=== PATIENT | male | born 1965 | race Caucasian/White ===

== ENCOUNTER 2022-06-27 15:04 | Outpatient (RCR) | payer BC, SELFPAY | END 2023-03-06 23:59 | disposition home or self-care (01) | PROVIDERS: PCP Family Medicine; Visit Provider Family Medicine | DX: M54.16 Radiculopathy, lumbar region (principal); M54.50 Low back pain, unspecified; Z51.89 Encounter for other specified aftercare | CPT/HCPCS: 97110; 97162 ==

== ENCOUNTER 2024-11-17 12:29 | Emergency (ER) | payer OTHER, SELFPAY ==
--- OUTSIDE RECORDS SUMMARY | 2024-11-17 12:31 | XMS_ITS | Clinical Summary ---
Author Organization [employer] [facility] Address [address] [place] [address] Care Team Providers Care Shearing Supervisor Name Role Phone Dennis Donovan MD Primary Care Provider Allergies No known active allergies Medications ibuprofen (ADVIL; MOTRIN) 200 mg tabletIndications: Screen for colon cancer,Polyp of colon, unspecified part of colon, unspecified type,Diverticulosi s of large intestine without hemorrhage Take 1 Tablet (200 mg) by mouth in the morning and 1 Tablet (200 mg) at noon and 1 Tablet (200 mg) in the evening and 1 Tablet (200 mg) before bedtime. 0 2 Active escitalopram oxalate (LEXAPRO) 20 mg tabletIndications: Current moderate episode of major depressive disorder without prior episode (HC) Take (20mg) by mouth AFTER taking 10mg for 1 week. 90 Tablet 3 4 Active methylPREDNISolone (Medrol, Nir,) 4 mg tabletIndications: Back pain without radiation Take by mouth as instructed per packaging. 21 Tablet 5 Active gabapentin (NEURONTIN) 300 mg capsuleIndications :Peripheral polyneuropathy Take 2 Capsules (600 mg) by mouth at bedtime. 180 Capsule 3 5 Active cyclobenzaprine (FLEXERIL) 10 mg tabletIndications: Back pain without radiation TAKE 1 TABLET(10 MG) BY MOUTH THREE TIMES DAILY NEEDED FOR MUSCLE SPASM 30 Tablet 1 5 Active Active Problems Problem Noted Date Diagnosed Date Hypertriglyceridemia 11/26/2022 Overweight 11/26/2022 Generalized anxiety disorder 12/28/2014 Cervical spinal stenosis 09/26/2009 Overview (09/26/2009): S/p anterior approach fusion Encounters Date Type Department Care Team Description 10/06/2024 Refill [facility] [address] [place] [address] Roxy Messer MD Refill Request (Cyclobenzaprine) 09/17/2024 2:00 PM CLINICAL DIETITIAN Office Visit [facility] [address] [place] [address] Hilario Calles [facility] Visit 09/17/2024 Travel 09/14/2024 7:50 AM CLINICAL DIETITIAN Office Visit [facility] [address] [place] [address] Roxy Messer MD Back Pain (X 3 days) 09/14/2024 Travel 09/12/2024 Nurse Triage [facility] [address] [place] [address] Dennis Donovan MD Concerns 09/03/2024 1:00 PM CLINICAL DIETITIAN Office Visit [facility] [address] [place] [address] Hilario Calles [facility] Visit 09/02/2024 Travel 09/01/2024 8:00 AM CLINICAL DIETITIAN Office Visit [facility] [address] [place] [address] Daysi Cagle MD Consult (Lipoma top of head) 09/01/2024 Travel 08/30/2024 1:00 PM CLINICAL DIETITIAN Office Visit [facility] [address] [place] [address] Hilario Calles [facility] Visit 08/30/2024 Travel 08/27/2024 8:50 AM CLINICAL DIETITIAN Office Visit [facility] [address] [place] [address] Iesha Raymundo PA Foot Problem (R foot was numb on Bria - now all toes on R foot feel weird and 2 toes on L foot feel same way ); Referral (For therapy) 08/26/2024 Travel from Last 3 Months Immunizations Immunization Administration Dates Next Due Influenza A (H1N1), Inactivated 07/31/2009 Influenza A (H1N1), Inactivated (Age >=3 Years) 07/18/2009 Influenza, IIV3 (Age >=3 years) 06/18/2009 Influenza, IIV4 07/31/2017 Tdap 11/19/2021,01/30/2012 Tuberculin (PPD) 01/06/2017 Zoster (Shingrix-RZV, recombinant) 11/26/2022, Family History Medical History Relation Name Comments Heart failure Father at 60's Cancer-colon No Family History Cancer-prostate No Family History Diabetes No Family History Relation Name Status Comments Father Social History Tobacco Use Types Packs/Day Years Used Date Smoking Tobacco: Never Smokeless Tobacco: Never Tobacco Cessation:Counseling Given: No Alcohol Use Standard Drinks/Week Comments Not Currently 0 (1 standard drink = 0.6 oz pur e alcohol) PHQ-2 Answer Date Recorded PHQ-2 TOTAL SCORE 2 02/05/2023 Social Connections Answer Date Recorded Do you often feel lonely or isolated from those around you? 0 12/05/2023 Financial Resource Strain Answer Date R ecorded Difficulty of Paying Living Expenses 2 12/05/2023 Difficulty of Paying Living Expenses 1 12/05/2023 Food Insecurity Answer Date Recorded Do you worry your food will run out before you are able to buy more? 1 12/05/2023 Transportation Needs Answer Date Record ed Does lack of transportation keep you from medica l appointments? 1 12/05/2023 Does lack of transportation keep you from work, meetings or getting things that you need? 1 12/05/2023 Housing Stability Answer Date Recorded What is your housing situation today? 1 12/05/2023 Utilities Answer Date Recorded Do you have trouble paying f or utilities (for example, heat, electricity, water, phone)? 2 12/05/2023 Sex and Gender Information Value Date Recorded Sex Assigned at Not on file Legal Sex Male 7:41 AM CLINICAL DIETITIAN Gender Identity Not on file Sexual Orientation Not on file Obstetrics History Last Filed Vital Signs Vital Sign Reading Time Taken Comments Blood Pressure 122/79 09/14/2024 7:50 AM CLINICAL DIETITIAN Pulse 77 09/14/2024 7:50 AM CLINICAL DIETITIAN Temperature 36.4 C (97.6 F) 11/26/2022 3:23 PM CDT Respiratory Rate 18 06/13/2020 9:06 AM CDT Oxygen Saturation 97% 09/14/2024 7:50 AM CLINICAL DIETITIAN Inhaled Oxygen Concentration - - Weight 96.7 kg (213 lb 3.2 oz) 09/14/2024 7:50 A M CLINICAL DIETITIAN Height 177.8 cm (5' 10) 12/05/2023 8:46 AM CDT Body Mass Index 30.59 12/05/2023 8:46 AM CDT Plan of Treatment Upcoming Encounters Date Type Department Care Team (Late st Contact Info) Description 12/28/2024 8:00 AM CDT Office Visit [facility] [address] [place] [phone] Nikita Roberts PsyD, LP [address] [place] [address] Health Maintenance Due Date Last Done Comments Pneumococcal series for age 50+ (1 of 1 - PCV) 2015 Depression screening for age 12+ 02/06/2024 02/05/2023, 11/26/2022, 05/17/2021, Additional history exists COVID-19 vaccine series ( season) 2024 08/22/2021, 10/12/2020, 09/12/2020 BMI (ht and wt on same day) for age 18+ 12/04/2024 12/05/2023, 11/26/2022, 05/23/2021, Additional history exists Influenza Vaccine (Season Ended) 2025 07/31/20 17, 06/18/2009 Lipids for age 45-75 12/04/2028 12/05/2023, 11/26/2022, 11/19/2021 Tetanus booster 11/20/2031 11/19/2021, 01/30/2012 Colonoscopy through age 75 02/08/203202/07, 02/07/2022, 02/07/2022 Hepatitis C screening for ag e 18-79 Completed 11/19/2021 Tdap Completed 11/19/2021, 01/30/2012 HIV for age 15-65 Completed 11/26/2022 Zoster (shingles) series for age 50+ Completed 11/26/2022, 11/19/2021 Medical Devices Implanted Type Area Traffic Analysis Technician Device Identifier Shelf Expiration Date Model / Serial / Lot Plate 22.5mm Ant Cerv - [id number] Implanted:Qty: 1 on 09/26/[address] [facility] Spine Implants N/A: Cervical Vertebrae [employer] [id number] / / Screw 3.5x15 Zephir Self Tap - [id number] Implanted:Qty: 4 on 09/26/[address] [facility] Spine Implants N/A: Cervical Vertebrae [employer] [id number] / / [employer] Psr [id number] - [id number] Implanted:Qty: 1 on 09/26/[address] [facility] N/A: Cervical Vertebrae [employer]ANEK 03/18/2011 [id number] / / [id number] Procedures Procedure Name Priority Date/Time Associated Diagnosis Comments HEMOGLOBIN A1C Routine 08/27/2024 9:26 AM CLINICAL DIETITIAN Blood glucose elevated LIPID PANEL W REFLEX MEASURED LDL Routine 12/05/2023 9:13 AM CDT Hypertriglyceridemia LC HIV-1/O/2, 4TH GENERATION Routine 11/26/2022 4:25 PM CDT Screening for HIV (human immunodeficiency virus) COLONOSCOPY 02/07/2022 8:42 AM CDT ANTI HCV Routine 11/19/2021 2:08 PM CDT Need for hepatitis C screening test from Last 3 Months or Most Recently Relevant to Health Maintenance Results * HEMOGLOBIN A1C (08/27/2024 9:26 AM CLINICAL DIETITIAN) HEMOGLOBIN A1C 5.1 <5.7 % of total Hgb [facility] Comment: For the purpose of screening for the presence of diabetes: <5.7% Consistent with the absence of diabetes 5.7-6.4% Consistent with increased risk for diabetes (prediabetes) > or =6.5% Consistent with diabetes This assay result is consistent with a decreased risk of diabetes. Currently, no consensus exists regarding use of hemoglobin A1c for diagnosis of diabetes in children. According to [place] Diabetes Association (ADA) guidelines, hemoglobin A1c <7.0% represents optimal control in non- diabetic patients. Different metrics may apply to specific patient populations. Standards of Medical Care in Diabetes(ADA). Blood BLOOD SPECIMEN / Unknown 08/27/2024 9:26 AM CLINICAL DIETITIAN 08/27/2024 9:27 AM CLINICAL DIETITIAN Iesha BARTHOLOMEW CHEMISTRY Final R esult [employer] [facility] [address] [place] [address], [facility] [address] [place] [address] * (ABNORMAL) LIPID PANEL W REFLEX MEASURED LDL (12/05/2023 9:13 AM CDT) [facility] CHOLESTEROL,TOTAL 160 100 - 199 mg/dL 12/05/2023 6:[address] [facility] Comment: Cholesterol, Total Reference Ranges Desirable <200 mg/dL Borderline 200-239 mg/dL High >=240 mg/dL TRIGLYCERIDES 166(H) <150 mg/dL 12/05/2023 6:06 PM [facility] HDL CHOLESTEROL 32(L) >40 mg/dL 6:06 PM [facility] NON-HDL CHOLESTEROL 128 <145 mg/dl 12/05/2023 6:06 PM [facility] CHOL/HDL RATIO 5.00(H) <4.50 12/05/2023 6:06 PM [facility] LDL CHOLESTEROL 95 <=130 mg/dL 12/05/2023 6:06 PM [facility] VLDL CHOLESTEROL 33(H) <=30 mg/dL 12/05/2023 6:06 PM CDT [facility] PROVIDER ORDERED STATUS RANDOM 12/05/2023 6:06 PM CDT [facility] Blood BLOOD SPECIMEN / Unknown Venipuncture / Unknown 12/05/2023 9:13 AM CDT 12/05/2023 9:14 AM CDT us Dennis Donovan MD CHEMISTRY Final Result [facility] [address] [place] [address], [place] * LC HIV-1/O/2, 4TH GENERATION (11/26/2022 4:25 PM CDT) [facility] HIV Scr 4th Gen Non Reactive Non Reactive 11/29/2022 1:09 PM CDT [facility] Comment: HIV Negative HIV-1/HIV-2 antibodies and HIV-1 p24 antigen were NOT detected. There is no laboratory evidence of HIV infection. Blood BLOOD SPECIMEN / Unknown Venipuncture / Unknown 11/26/2022 4:25 PM CDT 11/26/2022 4:27 PM CDT Narrative [facility] - 11/29/2022 1:09 PM CDT Performed at: [address] [place] [id number] Hadoop Java Developer: José Jaramillo MD, Phone: [phone] us Dennis Donovan MD LABORATORY Final Result [facility] [address] [place] [address], [place] * COLONOSCOPY (02/07/2022 8:42 AM CDT) 02/07/2022 8:42 AM CDT Narrative Transcriptions Yao Ghosh MD - 02/07/2022 9:47 AM CDT Patient Name: Dennis Shi Procedure Date: 02/07/2022 Gender: Male Date of : 1965 Admit Type: Outpatient Procedure: Colonoscopy Proceduralist: Yao Ghosh MD , Elvia Fierro (Nurse) Indications/Pre-Op Diagnosis: Screening for colorectal malignant neoplasm, This is the patient's first colonoscopy Medications: Fentanyl 100 micrograms IV, Midazolam 2 mgIV, The level of sedation administered wasmoderate Procedure Description: The patient had risks, benefits and alternatives explained to andgave informed consent. The patient had a stable cardiopulmonary status and judged an adequate candidate for conscious sedation. The [id number] was passed through the anus and advanced tothe cecum, identified by appendiceal orifice and ileocecal valve. The colonoscopy was performed without difficulty. The patient toleratedthe procedure well. The quality of the bowel preparation was good. The ileocecal valve, appendiceal orifice, and rectum were photographed. Complications: No immediate complications. Estimated Blood Loss & Specimen: Estimated blood loss: none. Specimen collected - Yes and sent to Laboratory Findings: The perianal and digital rectal examinations were normal. The terminal ileum appeared normal. A 3 mm polyp was found in the sigmoid colon. The polyp was sessile.The polyp was removed with a cold snare. Resection and retrieval were complete. Scattered small and large-mouthed diverticula were found in theentire colon. A patchy area of mildly erythematous mucosa was found in theascending colon. Biopsies were taken with a cold forceps for histology. The exam was otherwise without abnormality. Impressions/Post-Op Diagnosis: - The examined portion of the ileum was normal. - One 3 mm polyp in the sigmoid colon, removed with a cold snare. Resected and retrieved. - Diverticulosis in the entire examined colon. - Erythematous mucosa in the ascending colon. Biopsied. - The examination was otherwise normal. Recommendation: - Patient has a contact number available for emergencies. The signsand symptoms of potential delayed complications were discussed with the patient. Return to normal activities tomorrow. Written discharge instructions were provided to the patient. - Resume previous diet. - Continue present medications. - Await pathology results. - Repeat colonoscopy is recommended. The colonoscopy date will be determined after pathology results from today's exam become available for review. Moderate Sedation: Moderate (conscious) sedation was administered by the endoscopy nurse and supervised by the endoscopist. The following parameters were monitored: oxygen saturation, heart rate, respiratory rate, blood pressure, adequacy of pulmonary ventilation and reponse to care. Please refer to the patient's medical record flowsheets and nursing notes for moderate sedation details. Total physician intraservice time was 18 minutes. Yao Ghosh MD 02/07/2022 9:47:11 AM This report has been signed electronically. Note Initiated On: 02/07/2022 8:42 AM Procedure Code(s): --- Professional --- 91793, Colonoscopy, flexible; with removalof tumor(s), polyp(s), or other lesion(s) bysnare technique 10874, 59, Colonoscopy, flexible; withbiopsy, single or multiple Diagnosis Code(s): --- Professional --- Z12.11, Encounter for screening formalignant neoplasm of colon D12.5, Benign neoplasm of sigmoid colon K63.89, Other specified diseases ofintestine K57.30, Diverticulosis of large intestine without perforation or abscess withoutbleeding CPT copyright 2020 [place] [employer]. All rights reserved. The codes documented in this report are preliminary and upon fancy sewer reviewmay be revised to meet current compliance requirements. Scope In: 9:21:37 AM Scope Withdrawal Time 0 hours 12 minutes 34 seconds Scope Out: 9:38:02 AM us Yao Ghosh MD PROCEDURE ORD Final Res ult * ANTI HCV (11/19/2021 2:08 PM CDT) HEPATITIS C ANTIBODY Non-React merced Non-React merced 11/19/2021 11:10 PM CDT [facility] Comment:Antibodies to HCV no t detected; does not exclude the possibility of exposure to HCV. Blood BLOOD SPECIMEN / Unknown Venipuncture / Unknown 11/19/2021 2:08 PM CDT 11/19/2021 2:11 PM CDT us Dennis Donovan MD SEND OUTS Final Result [facility] [address] [place] [address], [place] from Last 3 Months or Most Recently Relevant to Health Maintenance Insurance [place] Advance Directives * Full Code (Latest Code Status on File) Date Activated Date Inactivated Comments 09/26/2009 2:37 PM 09/27/2009 3:38 PM * Full Code Date Activated Date Inactivated Comments 09/26/2009 9:58 AM 09/26/2009 2:37 PM Care Teams Shearing Supervisor Relationship Specialty Start Date End Date Dennis Donovan MD [address] [place] [address] PCP - General Family Practice 08/26/17
[2024-11-17 13:07] VITALS: BP 149/79; PULSE 89; RESP 16; TEMP 37.2; O2SAT 96; BMI 30.2
--- NOTE | 2024-11-17 13:44 | ED.WOUNDLAC ---
HPI - Wound/Laceration General Chief Complaint: Laceration/Wound Stated Complaint: R middle finger lac Time Seen by Provider: 11/17/24 12:31 History of Present Illness HPI narrative: This 59-year-old male comes in with an injury to his right middle finger. He was at work cleaning a desk and as he reached under at there was something sharp that cut into the distal portion of his right middle finger. His tetanus status is up-to-date and was administered last time about 3 years ago. Related Data Allergies Allergy/AdvReac Type Severity Reaction Status Date / Time No Known Drug Allergies Allergy Verified 11/17/24 13:06 Review of Systems Status of ROS: Reports: 10 or more systems reviewed and unremarkable except as noted in History and below Narrative: Constitutional: No fevers, no weight gain or loss. Eyes: No discharge. No vision changes. HENT: No congestion, no sore throat, no ear pain. Cardiovascular: No chest pain, no palpitations. Respiratory: No shortness of breath, no wheezes, no cough. Gastrointestinal: No abdominal pain, no vomiting, no diarrhea. Genitourinary: No dysuria, no hematuria. Musculoskeletal: Normal range of motion. Skin: No rashes, no pruritis. Neurological: No dizziness, weakness, sensory change, speech change. Endo/Heme/Allergies: No bruising or bleeding. No polydipsia. Pysch: no suicidality, no anxiety, no insomnia. All other systems reviewed and are negative. Exam Narrative: Exam Narrative: Constitutional: Well-developed, well-nourished, no acute distress. HEENT: Normocephalic, atraumatic. Neck: Normal range of motion. Nontender. Supple. Heart: Intact distal pulses. Lungs: No chest discomfort. No wheezes, rhonchi, or rales. Abdomen: Nontender. Back: Normal range of motion. Extremities: Normal range of motion. 1.5 cm laceration on the distal portion of the right middle finger. Skin: Intact. No rash. Warm. No erythema or pallor. Neurologic: No altered sensation. No weakness. Alert and oriented. Psychiatric: No suicidality. No anxiety or depression. No insomnia. Nursing notes and vitals signs are reviewed. Const: Vital Signs, click to edit/add: Vital Signs - 24 hr 11/17/24 13:07 Temperature 99.0 F Pulse Rate [Pulse Oximeter] 89 Respiratory Rate 16 Blood Pressure [Ri ght Upper Arm] 149/79 H Pulse Oximetry 96 Oxygen Delivery Me thod Room Air Course Vital Signs Vital signs: Initial Vital Signs Temperature 99.0 F 11/17/24 13:07 Temperature Source Oral 11/17/24 13:07 Pulse Rate 89 11/17/24 13:07 Respiratory Rate 16 11/17/24 13:07 Blood Pressure 149/79 H 11/17/24 13:07 Blood Pressure Mean 102 11/17/24 13:07 Blood Pressure Position Sitting 11/17/24 13:07 Pulse Oximetry 96 11/17/24 13:07 Oxygen Delivery Method Room Air 11/17/24 13:07 Vital Signs Temperature 99.0 F 11/17/24 13:07 Pulse Rate 89 11/17/24 13:07 Respiratory Rate 16 11/17/24 13:07 Blood Pressure 149/79 H 11/17/24 13:07 Pulse Oximetry 96 11/17/24 13:07 Oxygen Delivery Method Room Air 11/17/24 13:07 Temperature 99.0 F 11/17/24 13:07 Pulse Rate 89 11/17/24 13:07 Respiratory Rate 16 11/17/24 13:07 Blood Pressure 149/79 H 11/17/24 13:07 Pulse Oximetry 96 11/17/24 13:07 Oxygen Delivery Method Room Air 11/17/24 13:07 MDM - Wound/Laceration MDM Narrative Medical decision making narrative: This patient comes in with an injury to his right middle finger. The wound was cleansed and I recommended Dermabond repair as the wound edges are already nicely approximated. Per Dermabond was applied with excellent results. Instructions regarding wound care were given. Discharge Plan Discharge Clinical Impression: Laceration Patient Disposition: Home, Self-Care Condition: Stable Additional Instructions: Keep wound clean and dry. Use [id number] medicines as needed and directed. Follow up with MD return if worsening. Follow Up/Referrals: Margot Christopher DO [Primary Care Provider] - Stand Alone Forms: Work/School Release
--- OUTSIDE RECORDS SUMMARY | 2024-11-17 14:01 | XMS_ITS | Clinical Summary ---
Author Organization [facility] Address [address] [place] [id number] Care Team Providers Care Gage Maker Name Role Phone Dennis Donovan MD Primary [...] Type Department Care Team Description 10/06/2024 Refill [facility] [address] [place] [address] Roxy Messer MD Refill Request (Cyclobenzaprine) 09/17/2024 2:00 PM [employer]ARE[employer] INSTRUCTOR Office Visit [facility] [address] [place] [address] Hilario Calles [facility] Visit 09/17/2024 Travel 09/14/2024 7:50 AM HEALTH CAREERS INSTRUCTOR Office Visit [facility] [address] [place] [address] Roxy Messer MD Back Pain (X 3 days) 09/14/2024 Travel 09/12/2024 Nurse Triage [facility] [address] [place] [address] Dennis Donovan MD Concerns 09/03/2024 1:00 PM HEALTH CAREERS INSTRUCTOR Office Visit [facility] [address] [place] [address] Hilario Calles [facility] Visit 09/02/2024 Travel 09/01/2024 8:00 AM HEALTH CAREERS INSTRUCTOR Office Visit [facility] [address] [place] [address] Daysi Cagle MD Consult (Lipoma top of head) 09/01/2024 Travel 08/30/2024 1:00 PM HEALTH CAREERS INSTRUCTOR Office Visit [facility] [address] [place] [address] Hilario Calles [facility] Visit 08/30/2024 Travel 08/27/2024 8:50 AM HEALTH CAREERS INSTRUCTOR Office Visit [facility] [address] [place] [address] Iesha Raymundo PA Foot Problem (R foot [...] on file Legal Sex Male 7:41 AM HEALTH CAREERS INSTRUCTOR Gender Identity Not on file Sexual Orientation Not on file Obstetrics History Last Filed Vital Signs Vital Sign Reading Time Taken Comments Blood Pressure 122/79 09/14/2024 7:50 AM HEALTH CAREERS INSTRUCTOR Pulse 77 09/14/2024 7:50 AM HEALTH CAREERS INSTRUCTOR Temperature 36.4 C (97.6 F) 11/26/2022 3:23 PM CDT Respiratory Rate 18 06/13/2020 9:06 AM CDT Oxygen Saturation 97% 09/14/2024 7:50 AM HEALTH CAREERS INSTRUCTOR Inhaled Oxygen Concentration - - Weight 96.7 kg (213 lb 3.2 oz) 09/14/2024 7:50 A M HE[employer] CAREERS INSTRUCTOR Height 177.8 cm (5' 10) 12/05/2023 8:46 AM CDT Body Mass Index 30.59 12/05/2023 8:46 AM CDT Plan of Treatment Upcoming Encounters Date Type Department Care Team (Late st Contact Info) Description 12/28/2024 8:00 AM CDT Office Visit [facility] [address] [place] [phone] Nikita Roberts PsyD, LP [address] [place] [address] Health Maintenance Due Date Last Done Comments [...] 11/26/2022, 11/19/2021 Medical Devices Implanted Type Area Riveting Machine Operator Tape Control Device Identifier Shelf Expiration Date Model / Serial / Lot Plate 22.5mm Ant Cerv - [id number] Implanted:Qty: 1 on 09/26/2009 at [facility] Spine Implants N/A: Cervical Vertebrae [employer] [id number] / / Screw 3.5x15 Zephir Self Tap - [id number] Implanted:Qty: 4 on 09/26/2009 at [facility] Spine Implants N/A: Cervical Vertebrae [employer] [id number] / / [employer] [id number] - [id number] Implanted:Qty: 1 on 09/26/2009 at [facility] N/A: Cervical Vertebrae [employer] 03/18/2011 [id number] / / [id number] Procedures Procedure Name Priority Date/Time Associated Diagnosis Comments HEMOGLOBIN A1C Routine 08/27/2024 9:26 AM HEALTH CAREERS INSTRUCTOR Blood glucose elevated LIPID PANEL W REFLEX [...] Results * HEMOGLOBIN A1C (08/27/2024 9:26 AM HEALTH CAREERS INSTRUCTOR) HEMOGLOBIN A1C 5.1 <5.7 % of total [...] diagnosis of diabetes in children. According to [place] [employer] (ADA) guidelines, hemoglobin A1c <7.0% represents optimal control in non- diabetic patients. Different metrics may apply to specific patient populations. Standards of Medical Care in Diabetes(ADA). Blood BLOOD SPECIMEN / Unknown 08/27/2024 9:26 AM HEALTH CAREERS INSTRUCTOR 08/27/2024 9:27 AM HEALTH CAREERS INSTRUCTOR Iesha BARTHOLOMEW CHEMISTRY Final R esult [employer] [facility] [address] [place] [address], [employer] [facility] [address] [place] [address] * (ABNORMAL) LIPID PANEL W REFLEX MEASURED LDL (12/05/2023 9:13 AM CDT) [facility] CHOLESTEROL,TOTAL 160 100 - 199 mg/dL 12/05/2023 6:[address] [facility] Comment: Cholesterol, Total Reference Ranges Desirable <200 mg/dL Borderline 200-239 mg/dL High >=240 mg/dL TRIGLYCERIDES 166(H) <150 mg/dL 12/05/2023 6:06 PM T [facility] HDL CHOLESTEROL 32(L) >40 mg/dL 6:06 PM T [facility] NON-HDL CHOLESTEROL 128 <145 mg/dl 12/05/2023 6:06 PM T [facility] CHOL/HDL RATIO 5.00(H) <4.50 12/05/2023 6:06 PM T [facility] LDL CHOLESTEROL 95 <=130 mg/dL 12/05/2023 6:06 PM T [facility] VLDL CHOLESTEROL 33(H) <=30 mg/dL 12/05/2023 6:06 PM CDT [facility] PROVIDER ORDERED STATUS RANDOM 12/05/2023 6:06 PM CDT [facility] Blood BLOOD SPECIMEN / Unknown Venipuncture / Unknown 12/05/2023 9:13 AM CDT 12/05/2023 9:14 AM CDT us Dennis Donovan MD CHEMISTRY Final Result [facility] [address] [place] [address], [place] * LC HIV-1/O/2, 4TH GENERATION (11/26/2022 4:25 PM CDT) [facility] HIV Scr 4th Gen Non Reactive Non Reactive 11/29/2022 1:09 PM CDT [facility] Comment: HIV Negative HIV-1/HIV-2 antibodies and HIV-1 p24 antigen were NOT detected. There is no laboratory evidence of HIV infection. Blood BLOOD SPECIMEN / Unknown Venipuncture / Unknown 11/26/2022 4:25 PM CDT 11/26/2022 4:27 PM CDT Narrative [facility] - 11/29/2022 1:09 PM CDT Performed at: [address] [place] [id number] Sales Appointment Coordinator: José Jaramillo MD, Phone: [phone] us Dennis Donovan MD LABORATORY Final Result [facility]) [address] [place] [id number], [place] * COLONOSCOPY (02/07/2022 8:42 AM CDT) [...] adequate candidate for conscious sedation. The [id number] was passed through the anus and advanced [...] 8:42 AM Procedure Code(s): --- Professional --- 46131, Colonoscopy, flexible; with removalof tumor(s), polyp(s), or other lesion(s) bysnare technique 73918, 59, Colonoscopy, flexible; withbiopsy, single or multiple Diagnosis Code(s): --- Professional --- Z12.11, Encounter for screening formalignant neoplasm of colon D12.5, Benign neoplasm of sigmoid colon K63.89, Other specified diseases ofintestine K57.30, Diverticulosis of large intestine without perforation or abscess withoutbleeding CPT copyright 2020 [employer] [employer]. All rights reserved. The codes documented in this report are preliminary and upon ent consultant reviewmay be revised to meet current compliance requirements. Scope In: 9:21:37 AM Scope Withdrawal Time 0 hours 12 minutes 34 seconds Scope Out: 9:38:02 AM us Yao Ghosh MD PROCEDURE ORD Final Res ult * ANTI HCV (11/19/2021 2:08 PM CDT) HEPATITIS C ANTIBODY Non-React merced Non-React merced 11/19/2021 11:10 PM CDT [facility] Comment:Antibodies to HCV no t detected; does not exclude the possibility of exposure to HCV. Blood BLOOD SPECIMEN / Unknown Venipuncture / Unknown 11/19/2021 2:08 PM CDT 11/19/2021 2:11 PM CDT us Dennis Donovan MD SEND OUTS Final Result [facility] [address] [place] [address], [place] from Last 3 Months or Most Recently Relevant to Health Maintenance Insurance [facility] Advance Directives * Full Code (Latest Code Status on File) Date Activated Date Inactivated Comments 09/26/2009 2:37 PM 09/27/2009 3:38 PM * Full Code Date Activated Date Inactivated Comments 09/26/2009 9:58 AM 09/26/2009 2:37 PM Care Teams Gage Maker Relationship Specialty Start Date End Date Dennis Donovan MD [address] [place] [address] PCP - General Family Practice 08/26/17
== END 2024-11-17 13:59 | disposition home or self-care (01) ==
LOC: ED 13:59
PROVIDERS: Emergency Provider Emergency Medicine Emergency Medical Services; PCP Family Medicine
DX: S61.212A Laceration without foreign body of right middle finger without damage to nail, initial encounter (principal); W26.8XXA Contact with other sharp object(s), not elsewhere classified, initial encounter; Y93.E9 Activity, other interior property and clothing maintenance; Y99.0 Civilian activity done for income or pay
CPT/HCPCS: 12001; 99282; 99284